=== PATIENT | male | born 1985 | race Caucasian/White ===

== ENCOUNTER 2016-10-07 01:36 | Emergency (ER) | payer SELFPAY ==
[2016-10-07 01:43] VITALS: BMI 23.5
[2016-10-07] MEDS ORDERED: Naloxone 0.4 mg/ml Inj (Adult) IVP STA (01:54)
--- NOTE | 2016-10-07 02:01 | ED PDOC ---
HPI: Psych/Substance Abuse Time Seen by Provider: 10/07/16 01:40 Chief Complaint (Nursing): Substance Abuse Chief Complaint (Provider): Substance Abuse History Per: Patient History/Exam Limitations: no limitations Onset/Duration Of Symptoms: Mins (prior to arrival) Current Symptoms Are (Timing): Still Present Additional Complaint(s): Rashi Olson is a 31 year old male, accompanied by friend who presents to the emergency department via EMS for an evaluation after found unresponsive post ingesting Cris prior to arrival. Given Narcan 1mg/ml via BLS on site which showed little improvement. Unable to provide further medical complaints. PMD: none provided Past Medical History Reviewed: Historical Data, Nursing Documentation, Vital Signs (initially unable to obtain but after pt woke up obtaine dhistory) - Medical History PMH: No Chronic Diseases Other PMH: history of cris abuse - Surgical History Surgical History: No Surg Hx - Family History Family History: States: Unknown Family Hx - Social History Current smoker - smoking cessation education provided: Yes Alcohol: Occasional Drugs: Cannabis, Methamphetamine - Home Medications Home Medications: Ambulatory Orders Medication Instructions Recorded Acetaminophen/Oxycodone Hydr 1 tab PO Q6 #8 tab 01/05/14 [Percocet 325 mg-5 mg] - Allergies Allergies/Adverse Reactions: Allergies Allergy/AdvReac Type Severity Reaction Status Date / Time No Known Allergies Allergy Verified 01/05/14 20:19 Review of Systems Review Of Systems: ROS cannot be obtained secondary to pt's inabilty to answer questions. (possible overdose) Physical Exam - Reviewed Nursing Documentation Reviewed: Yes Vital Signs Reviewed: Yes - Physical Exam Appears: Positive for: Well, Non-toxic, No Acute Distress Head Exam: Positive for: ATRAUMATIC, NORMAL INSPECTION, NORMOCEPHALIC Skin: Positive for: Normal Color, Warm. Negative for: Dry (diaphoretic) Eye Exam: Positive for: Other (pinpoint pupils). Negative for: Normal appearance, PERRL ENT: Positive for: Normal ENT Inspection Neck: Positive for: Normal, Painless ROM, Supple Cardiovascular/Chest: Positive for: Regular Rate, Rhythm Respiratory: Positive for: CNT, Normal Breath Sounds Gastrointestinal/Abdominal: Positive for: Normal Exam, Bowel Sounds, Soft. Negative for: Tenderness, Mass Back: Positive for: Normal Inspection. Negative for: L CVA Tenderness, R CVA Tenderness Extremity: Positive for: Normal ROM. Negative for: Pedal Edema Neurologic/Psych: Positive for: Alert (somnolent but arousable), Oriented - Laboratory Results Result Diagrams: 10/07/16 01:55 10/07/16 01:55 - ECG O2 Sat by Pulse Oximetry: 97 (RA) Pulse Ox Interpretation: Normal Medical Decision Making Medical Decision Making: Initial Impression: Possible overdose Initial Plan: * CT head without contrast * EKG * Acetaminophen * Alcohol serum * Labs * Drug screen * Salicylate * CXR * Narcan 0.8 IVP * Chong * Urinalysis Time::01 --EKG: Normal sinus rhythm: 82 Time:02:31 CT head FINDINGS: Brain: No acute intracranial hemorrhage. No significant white matter disease. No edema. Ventricles: No significant ventriculomegaly. Bones: No acute displaced fracture. Sinuses: Unremarkable as visualized. No acute sinusitis. Mastoid air cells: Unremarkable as visualized. No mastoid effusion. IMPRESSION: No acute intracranial hemorrhage, or suspicious mass effect. Time:05:45 Amphetamine found in urine and scored 100 on Acc-Chek. Upon provider reevaluation patient is sober, ambulating, alert, oriented, medically stable and requires no further treatment in the ED at this time. Patient will be discharged home. Counseling was provided and all questions were answered regarding diagnosis and need for follow up with PCP. There is agreement to discharge plan. Return if symptoms persist or worsen.pt will becalling mom to pick him up. Clinical Impression: Substance abuse Scribe Attestation: Documented by Yudi Rawls, acting as a scribe for Iesha Osorio MD. Provider Scribe Attestation: All medical record entries made by the Scribe were at my direction and personally dictated by me. I have reviewed the chart and agree that the record accurately reflects my personal performance of the history, physical exam, medical decision making, and the department course for this patient. I have also personally directed, reviewed, and agree with the discharge instructions and disposition. Disposition - Clinical Impression Clinical Impression: Amphetamine abuse - Patient ED Disposition Is Patient to be Admitted: No Counseled Patient/Family Regarding: Studies Performed, Diagnosis, Need For Followup - Disposition Referrals: [facility] [Outside] [facility] [Outside] Disposition Time: 03:00 Condition: IMPROVED Additional Instructions: follow up with your primary doctor in 1-2 days return to the ED with any worsening or concerning symptoms. Instructions: Methamphetamine Abuse (ED)
[2016-10-07 02:05] VITALS: RESP 16
[2016-10-07 02:26] LABS: BASO % 0.3 % (0.0-2.0); EOS # 0.1 K/uL (0.0-0.7); LYMPH # 2.9 K/uL (1.0-4.3); LYMPH % 29.5 % (20.0-40.0); MEAN CELL VOLUME 85.3 fl (80.0-94.0); MEAN CORPUSCULAR HEMOGLOBIN 28.7 pg (27.0-31.0); MEAN CORPUSCULAR HGB CONC 33.6 g/dL (33.0-37.0); MONO # 1.4 K/uL (0.0-0.8); MONO % 14.2 % (0.0-10.0); NEUT # 5.5 K/uL (1.8-7.0); NRBC % 0.1 % (0.0-0.0); RBC 5.57 Mil/uL (4.40-5.90); RED CELL DISTRIBUTION WIDTH 13.8 % (11.5-14.5)
--- NOTE | 2016-10-07 02:31 | CT ---
EXAM: CT Head Without Intravenous Contrast CLINICAL HISTORY: 31 years old, male; Signs and symptoms; Other: Unresponsive; Additional info: Possible trauma TECHNIQUE: Axial computed tomography images of the head/brain without intravenous contrast. This CT exam was performed using one or more of the following dose reduction techniques: automated exposure control, adjustment of the mA and/or kV according to patient size, and/or use of iterative reconstruction technique. Coronal and sagittal reformatted images were created and reviewed. COMPARISON: No relevant prior studies available. FINDINGS: Brain: No acute intracranial hemorrhage. No significant white matter disease. No edema. Ventricles: No significant ventriculomegaly. Bones: No acute displaced fracture. Sinuses: Unremarkable as visualized. No acute sinusitis. Mastoid air cells: Unremarkable as visualized. No mastoid effusion. IMPRESSION: No acute intracranial hemorrhage, or suspicious mass effect.
[2016-10-07 02:41] LABS: SALICYLATE < 1.0 mg/dl
[2016-10-07 02:43] LABS: ACETAMINOPHEN < 10.0 ug/ml (10.0-30.0)
[2016-10-07 02:44] LABS: BARBITURATES, UR NEGATIVE (NEGATIVE); BENZODIAZEPINES, UR NEGATIVE (NEGATIVE); OPIATES, UR NEGATIVE (NEGATIVE); PHENCYCLIDINE, UR NEGATIVE (NEGATIVE)
[2016-10-07 02:52] LABS: ALB/GLOB RATIO 1.7 (1.0-2.1); ALBUMIN 5.2 g/dL (3.5-5.0); ALT/SGPT 47 U/L (21-72); AST/SGOT 42 U/L (17-59); BLOOD UREA NITROGEN 24 mg/dl (9-20); CALCIUM 10.2 mg/dL (8.4-10.2); GFR AFRICAN-AMERICAN > 60; GFR NON-AFRICAN AMERICAN > 60
[2016-10-07 03:08] LABS: URINE BILIRUBIN NEGATIVE (NEGATIVE); URINE BLOOD NEGATIVE (NEGATIVE); URINE CLARITY CLEAR (Clear); URINE COLOR YELLOW (YELLOW); URINE GLUCOSE (UA) NEG (Normal); URINE LEUKOCYTE ESTERASE TRACE Leu/uL (Negative); URINE NITRATE NEGATIVE (NEGATIVE); URINE PROTEIN 30 mg/dL (NEGATIVE)
[2016-10-07 03:40] LABS: ABG ALLEN TEST YES; ARTERIAL BLOOD GAS HCO3 27.5 mmol/L (21-28); ARTERIAL BLOOD GAS O2 SAT 105.6 % (95-98); ARTERIAL BLOOD GAS PCO2 48 mm/Hg (35-45); ARTERIAL BLOOD GAS PH 7.39 (7.35-7.45); ARTERIAL BLOOD GAS PO2 134 mm/Hg (80-100); ARTERIAL BLOOD GAS TCO2 30.6 mmol/L (22-28)
[2016-10-07 06:15] VITALS: BP 150/94; PULSE 96; TEMP 98.2
--- NOTE | 2016-10-07 09:18 | RAD ---
PROCEDURE: CHEST RADIOGRAPH, 1 VIEW HISTORY: drug abuse COMPARISON: None available. FINDINGS: LUNGS: Poor inspiration with low lung volumes, mild crowded bronchovascular markings and bibasilar atelectasis PLEURA: No pneumothorax or pleural fluid seen. CARDIOVASCULAR: Heart size is upper limits of normal OSSEOUS STRUCTURES: No significant abnormalities. VISUALIZED UPPER ABDOMEN: Normal. OTHER FINDINGS: None. IMPRESSION: Poor inspiration with low lung volumes, mild crowded bronchovascular markings and bibasilar atelectasis
[2016-10-07 19:45] VITALS: O2SAT 97
--- NOTE | 2016-10-08 06:49 | CARD ---
APPROVED REPORT EKG Measurement Heart [id number] ID [id number] <Conclusion> Normal sinus rhythm Early repolarization Normal ECG
== END 2016-10-07 06:14 | disposition home or self-care (01) ==
LOC: H.ER 01:36
DX: F15.10 Other stimulant abuse, uncomplicated (principal)
CPT/HCPCS: 70450; 71010; 80053; 81003; 82803; 82948; 85025; 93005; 96374; 96376; 99285; G0480; J2310

== ENCOUNTER 2016-11-23 10:52 | Emergency (ER) | payer SELFPAY ==
[2016-11-23 10:52] VITALS: BMI 23.5
[2016-11-23 11:20] VITALS: RESP 19; O2SAT 98
[2016-11-23] MEDS ORDERED: cefTRIAXone (Rocephin) 250 mg Inj IM STA (11:21)
--- NOTE | 2016-11-23 11:25 | ED PDOC ---
HPI: Male Pain Time Seen by Provider: 11/23/16 10:59 Chief Complaint (Nursing): Male Genitourinary Chief Complaint (Provider): "I have gonorrhea" History Per: Patient History/Exam Limitations: no limitations Onset/Duration Of Symptoms: Days Current Symptoms Are (Timing): Still Present Severity: Moderate Quality Of Discomfort: Burning Additional Complaint(s): 31 yo sexually active male presents with burning on urination and discharge from the penis. Pt has intercourse with males and does not use protection. Pt reports symptoms for a few days and states they were the same when he had gonorrhea last year. Pt denies N/V/D, joint pain, fever or sore throat. Past Medical History Reviewed: Historical Data, Nursing Documentation, Vital Signs Vital Signs: Last Vital Signs Temp 98 F 11/23/16 11:17 Pulse 105 H 11/23/16 11:17 Resp 19 11/23/16 11:17 BP 166/110 H 11/23/16 11:17 Pulse Ox 98 11/23/16 11:17 - Medical History PMH: No Chronic Diseases - Surgical History Surgical History: No Surg Hx - Family History Family History: States: Unknown Family Hx - Living Arrangements Living Arrangements: With Family - Social History Current smoker - smoking cessation education provided: No Alcohol: None Drugs: Denies - Home Medications Home Medications: Ambulatory Orders Medication Instructions Recorded Acetaminophen/Oxycodone Hydr 1 tab PO Q6 #8 tab 01/05/14 [Percocet 325 mg-5 mg] - Allergies Allergies/Adverse Reactions: Allergies Allergy/AdvReac Type Severity Reaction Status Date / Time No Known Allergies Allergy Verified 01/05/14 20:19 Review of Systems ROS Statement: Except As Marked, All Systems Reviewed And Found Negative Constitutional: Negative for: Fever, Chills, Weakness ENT: Negative for: Throat Pain, Throat Swelling Gastrointestinal: Negative for: Nausea, Vomiting, Abdominal Pain, Diarrhea Genitourinary Male: Positive for: Dysuria, Penile Discharge Physical Exam - Reviewed Nursing Documentation Reviewed: Yes Vital Signs Reviewed: Yes - Physical Exam Appears: Positive for: Well, Non-toxic, No Acute Distress Head Exam: Positive for: ATRAUMATIC, NORMAL INSPECTION, NORMOCEPHALIC Skin: Positive for: Normal Color, Warm, DRY Eye Exam: Positive for: Normal appearance ENT: Positive for: Normal ENT Inspection Neck: Positive for: Normal, Painless ROM Respiratory: Negative for: Accessory Muscle Use, Respiratory Distress Male Genital Exam: Positive for: normal genitalia Back: Positive for: Normal Inspection Extremity: Positive for: Normal ROM. Negative for: Tenderness Neurologic/Psych: Positive for: Alert, Oriented - ECG O2 Sat by Pulse Oximetry: 98 Medical Decision Making Medical Decision Making: STI discussed with patient and treatment for both gonorrhea and chlamydia today. Disposition - Clinical Impression Clinical Impression: Discharge from penis - Patient ED Disposition Is Patient to be Admitted: No Counseled Patient/Family Regarding: Diagnosis, Need For Followup - Disposition Disposition: Routine/Home Disposition Time: 11:27 Condition: GOOD Instructions: Sexually Transmitted Diseases (ED) Forms: [employer] (Panamanian)
[2016-11-23] MEDS ORDERED: cefTRIAXone (Rocephin) 250 mg Inj ONE (11:38)
[2016-11-23 12:10] VITALS: BP 128/70; PULSE 78; TEMP 97.4
== END 2016-11-23 12:10 | disposition home or self-care (01) ==
LOC: H.ER 10:52
DX: A54.9 Gonococcal infection, unspecified (principal)
CPT/HCPCS: 87086; 87491; 87591; 96372; 99282; J0696

== ENCOUNTER 2018-03-05 23:52 | Emergency (ER) | payer BC, OTHER ==
[2018-03-05 23:53] VITALS: BMI 25.7
[2018-03-06 00:01] VITALS: BP 161/100; PULSE 96; RESP 18; TEMP 98.8; O2SAT 100
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
[2018-03-06 01:52] LABS: BASO # 0.1 K/uL (0.0-0.2); BASO % 0.8 % (0.0-2.0); EOS # 0.1 K/uL (0.0-0.7); EOS % 1.6 % (0.0-4.0); HEMOGLOBIN 13.8 g/dL (12.0-18.0); LYMPH # 2.4 K/uL (1.0-4.3); LYMPH % 27.9 % (20.0-40.0); MEAN CELL VOLUME 84.1 fl (80.0-94.0); MEAN CORPUSCULAR HEMOGLOBIN 27.9 pg (27.0-31.0); MEAN CORPUSCULAR HGB CONC 33.2 g/dL (33.0-37.0); MEAN PLATELET VOLUME 8.7 fl (7.2-11.7); MONO # 0.8 K/uL (0.0-0.8); NEUT % 59.7 % (50.0-75.0); NRBC % 0.1 % (0.0-0.0); RBC 4.95 Mil/uL (4.40-5.90); RED CELL DISTRIBUTION WIDTH 13.6 % (11.5-14.5); WHITE BLOOD COUNT 8.4 K/uL (4.8-10.8)
[2018-03-06 01:57] LABS: ALB/GLOB RATIO 1.2 (1.0-2.1); ALBUMIN 3.7 g/dL (3.5-5.0); ALT/SGPT 32 U/L (21-72); AST/SGOT 19 U/L (17-59); BLOOD UREA NITROGEN 15 mg/dl (9-20); GFR NON-AFRICAN AMERICAN > 60
[2018-03-06] MEDS ORDERED: Potassium Chloride 20 mEq ER Tab PO ONE ×3 (02:38→02:57)
--- NOTE | 2018-03-06 09:31 | CT ---
Date of service: 03/06/2018 PROCEDURE: CT HEAD WITHOUT CONTRAST. HISTORY: bells palsy COMPARISON: 10/07/2016 TECHNIQUE: Axial computed tomography images were obtained through the head/brain without intravenous contrast. Radiation dose: Total exam DLP = 790.38 mGy-cm. This CT exam was performed using one or more of the following dose reduction techniques: Automated exposure control, adjustment of the mA and/or kV according to patient size, and/or use of iterative reconstruction technique. FINDINGS: HEMORRHAGE: No intracranial hemorrhage. BRAIN: No mass effect or edema. No atrophy or chronic microvascular ischemic changes. VENTRICLES: Unremarkable. No hydrocephalus. CALVARIUM: Unremarkable. PARANASAL SINUSES: Unremarkable as visualized. No significant inflammatory changes. MASTOID AIR CELLS: Unremarkable as visualized. No inflammatory changes. OTHER FINDINGS: None. IMPRESSION: Normal CT of the Head. No intracranial mass, hemorrhage or evidence of acute infarct. The preliminary findings for this examination were reported by [facility] Radiology at 1:25 a.m. on 03/06/2018. There is concurrence of this report with the preliminary findings.
== END 2018-03-06 03:15 | disposition home or self-care (01) ==
LOC: H.ER 23:52
DX: G51.0 Bell's palsy (principal); F41.9 Anxiety disorder, unspecified